=== PATIENT | female | born 1995 | race Caucasian/White ===

== ENCOUNTER → 2022-02-11 14:23 | Outpatient (CLI) | payer OTHER, SELFPAY ==
--- NOTE | 2022-02-11 19:15 | DI.NM.S_ITS ---
DATE OF SERVICE: PROCEDURE: Exercise stress test. INDICATION: History of postural orthostatic tachycardia syndrome, palpitation, dyspnea. CARDIAC STRESS: Patient underwent exercise stress test under the supervision of an attending staff. The patient walked on Yoseph protocol for 3 minutes and 57 seconds, achieved maximum heart rate of 161, which was 83 percent of target heart rate. [place] lightheadedness and shortness of breath. Hence, test was discontinued. Achieved 7 METs of workload and functional aerobic impairment positive 60 percent. Baseline blood pressure was 118/84. At rest, her heart rate was initially 57. However, upon standing, she developed heart rate of 110 with sinus tachycardia. At the end of first stage, her heart rate was 152 beats per minute with sinus tachycardia. During stress, there were no convincing ischemic changes. Occasional PVCs were seen. Within 1 minute in recovery. Heart rate dropped from 160 to about 109 beats per minute. She has intermittent PACs as well. No complex supraventricular or ventricular arrhythmias. No chest pain. CONCLUSION: Exercise stress test is negative for inducible ischemia. It is mildly submaximal exercise stress test. Very poor exercise tolerance. Normal blood pressure response. However, there was significant jump from supine to standing position with sinus tachycardia. Maximum heart rate was 161 beats per minute with enhanced chronotropic response. Some premature atrial contractions and premature ventricular contractions without any complex arrhythmias. No chest discomfort. The patient had lightheadedness and mild shortness of breath. The patient has known history of postural orthostatic tachycardia syndrome. Correlate clinically. Nikole Soto - TERRY/angelica/LARA doc#: [id number]/job#: [id number] dd: 02/11/2022 17:51:00 dt: 02/11/2022 18:45:00 DICTATING MD/COPIES TO: Giuliano Arce MD COPIES MNE: MATEO;
[2022-02-11 20:55] LABS: COVID19 -Nasal RAPID Negative (Negative)
== END ==
PROVIDERS: Referring Provider Internal Medicine Cardiovascular Disease; Visit Provider Internal Medicine Cardiovascular Disease
DX: R00.0 Tachycardia, unspecified (principal); R00.2 Palpitations; R06.00 Dyspnea, unspecified; Z20.822 Contact with and (suspected) exposure to COVID-19; I49.1 Atrial premature depolarization; I49.3 Ventricular premature depolarization
CPT/HCPCS: 87635; 93017

== ENCOUNTER 2022-03-30 09:39 | Emergency (ER) | payer OTHER, SELFPAY ==
[2022-03-30 09:45] VITALS: BP 135/83; PULSE 92; RESP 13; TEMP 36.7; O2SAT 100; BMI 23.1
[2022-03-30 09:47] VITALS: BP 135/83; PULSE 106; O2SAT 100
[2022-03-30 10:00] VITALS: BP 112/72; PULSE 79; O2SAT 100
[2022-03-30 10:18] LABS: COVID19 -Nasal RAPID Negative (Negative)
[2022-03-30 10:30] VITALS: BP 119/65; PULSE 69; O2SAT 99
--- NOTE | 2022-03-30 10:36 | ED.SOB ---
HPI - SOB/Dyspnea General Chief Complaint: Shortness of Breath/Dyspnea Stated Complaint: sob abd pain naseaous not sleeping 2weeks Time Seen by Provider: 03/30/22 09:44 Source: patient Mode of arrival: Ambulatory Limitations: no limitations History of Present Illness HPI Narrative: Nikole Escobar is a 27-year-old woman with difficulty breathing. She takes lithium for depression and recently increased the dosage 2 weeks ago and began feeling symptoms associated with that dosage increase. She is since gone back to her original dose of 450 daily. Over the past 2 weeks she is lost 11 lb. She finds it hard to breathe. She finds herself very emotional and crying over very small things. Constantly she feels like it is difficult to breathe. She has no headache, cough, fever, chest pain though she does describe a chest tightness associated with difficulty breathing. She has no hemoptysis, no history of lung disease. She does have a history of POTS disorder. No cancer history no recent surgeries no immobilization. She does take estrogen control pills. She does not believe she is as she did a test yesterday. She says she used to have panic attacks when she was in high school but this has not happened to her recently. She says she gets very anxious about adding new medications. Related Data Previous Rx's Medication Instructions Recorded diazepam 5 mg tablet 2.5 mg PO DAILY PRN anxiety #6 tabs 03/30/22 Allergies Allergy/AdvReac Type Severity Reaction Status Date / Time No Known Drug Allergies Allergy Verified 03/30/22 09:51 Review of Systems Review of Systems Narrative: Complete review of systems is negative other than as noted above. Patient History Social History Smoking Status: Unknown if ever smoked Smoking Status: Unknown if ever smoked alcohol intake frequency: holidays/special occasions only Substance Use Type: does not use Exam Narrative Exam Narrative: GENERAL: Alert, cooperative and in no distress. HEAD: Atraumatic. Normocephalic. EYES: Sclera are clear without icterus. Extraocular movements are full. ENT: No rhinorrhea. Oropharynx is moist. Mouth exam is benign. NECK: Supple. Full range of motion. CARDIOVASCULAR: Normal rate and rhythm without murmur gallop or rub. RESPIRATORY: Clear to auscultation. Breath sounds equal bilaterally. No wheezes, rales, or rhonchi. GASTROINTESTINAL: Abdomen soft, non-tender, nondistended. EXTREMITIES: No edema, full range of motion. No obvious trauma. BACK: Normal inspection, no CVA tenderness. NEURO: Nonfocal examination, normal speech, normal gait. SKIN: No rash or erythema of visible areas PSYCH: Normally oriented. Normal range of affect. Appropriate behavior Initial Vital Signs Initial Vital Signs: Vital Signs Temperature 98.0 F 03/30/22 09:45 Pulse Rate 92 H 03/30/22 09:45 Respiratory Rate 13 03/30/22 09:45 Blood Pressure 135/83 03/30/22 09:45 Pulse Oximetry 100 03/30/22 09:45 Oxygen Delivery Method 03/30/22 09:45 Course Orders Ordered: ED Orders 03/30/22 09:49 COVID19 -Nasal RAPID/Pre-Proc Stat 03/30/22 10:54 EKG-12 Lead Stat 03/30/22 11:12 COVID19 -Nasal RAPID/Pre-Proc Stat 03/30/22 12:20 CBC Auto Diff [Complete Blood Count AUTO DIFF] Stat CMP [Comprehensive Metabolic Panel] Stat D Dimer Stat Discontinued Medications Diazepam (Diazepam 2 Mg Tablet) 2 mg PO NOW ONE Stop: 03/30/22 10:39 Last Admin: 03/30/22 11:26 Dose: 2 mg Documented By: KRISH Vital Signs Vital signs: Vital Signs - 8 hr 03/30/22 09:45 03/30/22 09:47 03/30/22 09:47 Temperature 98.0 F Pulse Rate 92 H 106 H Respiratory Rate 13 Blood Pressure 135/83 135/83 Pulse Oximetry 100 100 Oxygen Delivery Method Room Air 03/30/22 10:00 03/30/22 10:00 03/30/22 10:30 Temperature Pulse Rate 79 Respiratory Rate Blood Pressure 112/72 119/65 Pulse Oximetry 100 Oxygen Delivery Method 03/30/22 10:30 Temperature Pulse Rate 69 Respiratory Rate Blood Pressure Pulse Oximetry 99 Oxygen Delivery Method MDM - SOB/Dyspnea Lab Data Result diagrams: 03/30/22 12:20 03/30/22 12:20 Labs: Lab Results 03/30/22 03/30/22 03/30/22 Range/Units 09:49 12:20 12:20 WBC 9.3 (4.5-11.0) X10^3/uL RBC 4.35 (4.0-5.2) X10^6/uL Hgb 13.0 (12.0-16.0) g/dL Hct 38.8 (36-46) % MCV 89.1 (80-100) fL MCH 29.8 (26-34) PG MCHC 33.4 (30-36) % RDW 12.4 (11.6-14.8) % Plt Count 298 (150-400) X10^3/uL Neut % (Auto) 64.4 (50-75) % Lymph % (Auto) 28.2 (25-40) % [place] % (Auto) 5.8 (3-14) % Eos % (Auto) 1.0 L (2-4) % Baso % (Auto) 0.6 (0-2) % Neut # (Auto) 6000 (4771-4348) /uL Lymph # (Auto) 2600 (3761-4680) /uL Summit # (Auto) 500 (0-900) /uL Eos # (Auto) 100 (0-450) /uL Baso # (Auto) 100 (0-100) /uL D-Dimer 306 (<500) ng/ml Sodium (137-145) mmol/L Potassium (3.4-5.1) mmol/L Chloride (98-107) mmol/L Carbon Dioxide (22-32) mmol/L BUN (7-17) mg/dL Creatinine (0.52-1.04) mg/dL Estimated GFR (>60) mL/min BUN/Creatinine Ratio (6-22) Glucose (70-100) mg/dL Calcium (8.4-10.2) mg/dL Total Bilirubin (0.2-1.3) mg/dL AST (14-36) IU/L ALT (<35) IU/L Alkaline Phosphatase (38-126) U/L Total Protein (6.3-8.2) g/dL Albumin (3.5-5.0) g/dL Globulin (1.7-4.1) g/dL Albumin/Globulin Ratio (1.0-2.8) SARS-CoV-2 (PCR) Negative (Negative) 03/30/22 Range/Units 12:20 WBC (4.5-11.0) X10^3/uL RBC (4.0-5.2) X10^6/uL Hgb (12.0-16.0) g/dL Hct (36-46) % MCV (80-100) fL MCH (26-34) PG MCHC (30-36) % RDW (11.6-14.8) % Plt Count (150-400) X10^3/uL Neut % (Auto) (50-75) % Lymph % (Auto) (25-40) % [place] % (Auto) (3-14) % Eos % (Auto) (2-4) % Baso % (Auto) (0-2) % Neut # (Auto) (2940-2165) /uL Lymph # (Auto) (7958-0968) /uL Summit # (Auto) (0-900) /uL Eos # (Auto) (0-450) /uL Baso # (Auto) (0-100) /uL D-Dimer (<500) ng/ml Sodium 140 (137-145) mmol/L Potassium 3.5 (3.4-5.1) mmol/L Chloride 108 H (98-107) mmol/L Carbon Dioxide 19 L (22-32) mmol/L BUN 5 L (7-17) mg/dL Creatinine 0.75 (0.52-1.04) mg/dL Estimated GFR > 60 (>60) mL/min BUN/Creatinine Ratio 6.7 (6-22) Glucose 91 (70-100) mg/dL Calcium 9.4 (8.4-10.2) mg/dL Total Bilirubin 1.4 H (0.2-1.3) mg/dL AST 35 (14-36) IU/L ALT 71 H (<35) IU/L Alkaline Phosphatase 47 (38-126) U/L Total Protein 7.7 (6.3-8.2) g/dL Albumin 4.5 (3.5-5.0) g/dL Globulin 3.2 (1.7-4.1) g/dL Albumin/Globulin Ratio 1.4 (1.0-2.8) SARS-CoV-2 (PCR) (Negative) ECG Data Interpretation: ECG obtained at 10:54 a.m. shows a sinus rhythm at 71 beats per minute. This is normal EKG. MDM Narrative Medical decision making narrative: No evidence of pulmonary embolism or dangerous chest pathology. I think symptomatic therapy for anxiety is appropriate in the meantime until she can follow-up with her primary care provider for further investigation is indicated. Discharge Plan Departure Patient Disposition: Home Clinical Impression: Shortness of Breath Activity Restrictions/Additional Instructions: No immediately dangerous cause for her breathlessness is identified. Specifically, no evidence of pulmonary embolism, heart attack, lung disease, infection or other immediately dangerous cause is found. Sometimes these symptoms that you have described are present with anxiety alone but further investigation would be required to properly diagnosed this and treat it. In the meantime, I recommend diazepam 2.5 mg taken as needed as frequently as once a day until you can follow-up with your primary care provider. Diazepam is not a long-term treatment for anxiety but rather a stop gap measure to help with your symptoms while you are waiting for follow-up. Never combine this medication with alcohol or other sedatives. Prescriptions: New diazepam 5 mg tablet 2.5 mg PO DAILY PRN (Reason: anxiety) Qty: 6 0RF Referrals: Provider,John LIPSCOMB [Primary Care Provider] -
[2022-03-30] MEDS: diazePAM 2 MG TABLET PO (11:26)
[2022-03-30 12:36] LABS: Add Manual Diff / Slide Review NO; Basophils Absolute Auto 100 /uL (0-100); Basophils Percent Auto 0.6 % (0-2); Eosinophils Absolute Auto 100 /uL (0-450); Hematocrit 38.8 % (36-46); Lymphocytes Absolute Auto 2600 /uL (1100-4500); Lymphocytes Percent Auto 28.2 % (25-40); Mean Corpuscular HGB Conc 33.4 % (30-36); Mean Corpuscular Hemoglobin 29.8 PG (26-34); Mean Corpuscular Volume 89.1 fL (80-100); Monocytes Absolute Auto 500 /uL (0-900); Monocytes Percent Auto 5.8 % (3-14); Neutrophils Absolute Auto 6000 /uL (1500-7000); Neutrophils Percent Auto 64.4 % (50-75); Platelet Count 298 X10^3/uL (150-400); Red Blood Cell Count 4.35 X10^6/uL (4.0-5.2); Red Cell Distribution Width 12.4 % (11.6-14.8); White Blood Cell Count 9.3 X10^3/uL (4.5-11.0)
[2022-03-30 12:42] LABS: D Dimer 306 ng/ml (<500)
[2022-03-30 12:46] LABS: Alanine Aminotransferase 71 IU/L (<35); Albumin 4.5 g/dL (3.5-5.0); Albumin Globulin Ratio 1.4 (1.0-2.8); Alkaline Phosphatase 47 U/L (38-126); Aspartate Aminotransferase 35 IU/L (14-36); BUN Creatinine Ratio 6.7 (6-22); Bilirubin Total 1.4 mg/dL (0.2-1.3); Blood Urea Nitrogen 5 mg/dL (7-17); Calcium 9.4 mg/dL (8.4-10.2); Carbon Dioxide 19 mmol/L (22-32); Chloride 108 mmol/L (98-107); Estimated Glomerular Filt Rate > 60 mL/min (>60); Globulin 3.2 g/dL (1.7-4.1); Glucose 91 mg/dL (70-100); HEMOLYSIS < 15 (0-50); Potassium 3.5 mmol/L (3.4-5.1); Sodium 140 mmol/L (137-145); Total Protein 7.7 g/dL (6.3-8.2)
[2022-03-30 13:33] VITALS: BP 108/61; PULSE 75; O2SAT 100
== END 2022-03-30 13:33 | disposition home or self-care (01) ==
PROVIDERS: Emergency Provider Family Medicine Addiction Medicine
DX: R06.02 Shortness of breath (principal); R07.89 Other chest pain; Z20.822 Contact with and (suspected) exposure to COVID-19
CPT/HCPCS: 80053; 85025; 85379; 87635; 93005; 93010; 99283; C9803